=== PATIENT | male | born 1995 | race African-American/Black ===

== ENCOUNTER 2019-03-22 08:27 | Emergency (ER) | payer MEDICAID ==
[~2019-03-22] VITALS: Ht 190.5 cm; Wt 92.0 kg
[2019-03-22] MEDS ORDERED: KETOROLAC 30MG/ML VIAL IV STA (10:07)
[2019-03-22 10:22] LABS: BASOPHILS % 0.4 % (0.0-2.0); EOSINOPHILS % 0.3 % (0.0-5.0); HEMATOCRIT. 43.4 % (42.0-52.0); HEMOGLOBIN. 14.9 g/dL (14.0-18.0); LYMPHOCYTES % 10.4 % (20.0-50.0); MEAN CORPUSCULAR HEMOGLOBIN 30.1 pg (28.0-32.0); MEAN CORPUSCULAR VOLUME 87.5 fL (80.0-94.0); MEAN PLATELET VOLUME 9.4 fl (7.4-10.4); MONOCYTES % 13.5 % (2.0-8.0); NEUTROPHILS % 75.4 % (40.0-76.0); PLATELET 213 x1000/uL (130-400); RED BLOOD CELL COUNT 4.96 mill/uL (4.7-6.1); RED CELL DISTRIBUTION WIDTH 13.3 % (11.6-14.6)
[2019-03-22 10:30] LABS: CHLORIDE 104 mEq/L (98-107)
[2019-03-22 10:40] LABS: INR 1.2; PROTHROMBIN TIME 12.3 sec (9.6-11.0)
[2019-03-22] MEDS ORDERED: SODIUM CHLORIDE 0.9% 1,000 ML IV ONE (12:09)
[2019-03-22 14:30] LABS: CLARITY URINE CLEAR (CLEAR); COLOR URINE DARK YELLOW (YELLOW); KETONES URINE TRACE (NEGATIVE); LEUKOCYTE ESTERASE URINE TRACE (NEGATIVE); NITRITE URINE NEGATIVE (NEGATIVE); OCCULT BLOOD URINE 3+ (NEGATIVE); PH URINE 5.5 (4.5-8.0); PROTEIN URINE 1+ (NEGATIVE); SPECIFIC GRAVITY URINE 1.022 (1.005-1.030)
[2019-03-22 15:15] VITALS: BP 133/67
== END 2019-03-22 15:21 | disposition home or self-care (01) ==
LOC: ER 08:35
DX: R10.30 Lower abdominal pain, unspecified (principal); K58.8 Other irritable bowel syndrome; F12.10 Cannabis abuse, uncomplicated; Z98.890 Other specified postprocedural states
CPT/HCPCS: 36415; 74176; 80053; 81003; 83690; 85025; 85610; 96374; 99284; J1885; J7030

== ENCOUNTER 2019-07-09 07:40 | Emergency (ER) | payer MEDICAID ==
[~2019-07-09] VITALS: Ht 190.5 cm; Wt 96.0 kg
[2019-07-09] MEDS ORDERED: ONDANSETRON 4MG ODT PO ONE (09:00)
[2019-07-09] MEDS ORDERED: LIDOCAINE HCL 1% 20ML VIAL (Pyxis) INJ INFIL ONE (09:00)
[2019-07-09] MEDS ORDERED: CEFTRIAXONE SODIUM 1 G/VIAL IM ONE (09:00)
[2019-07-09] MEDS ORDERED: ACETAMINOPHEN 500MG TABLET PO ONE (10:00)
[2019-07-09 11:03] LABS: CLARITY URINE CLEAR (CLEAR); COLOR URINE DARK YELLOW (YELLOW); KETONES URINE 1+ (NEGATIVE); LEUKOCYTE ESTERASE URINE TRACE (NEGATIVE); NITRITE URINE NEGATIVE (NEGATIVE); OCCULT BLOOD URINE NEGATIVE (NEGATIVE); PROTEIN URINE TRACE (NEGATIVE); SPECIFIC GRAVITY URINE 1.025 (1.005-1.030)
[2019-07-09] MEDS ORDERED: AZITHROMYCIN 500 MG TABLET PO ONE (11:45)
[2019-07-09 12:00] VITALS: BP 128/80
== END 2019-07-09 12:06 | disposition home or self-care (01) ==
LOC: ER 07:40
DX: K58.9 Irritable bowel syndrome, unspecified (principal); N34.2 Other urethritis; F12.10 Cannabis abuse, uncomplicated; Z98.890 Other specified postprocedural states
CPT/HCPCS: 81003; 96372; 99285; J0696; J3490; Q0162